=== PATIENT | female | born 1965 | race African-American/Black ===

== ENCOUNTER 2017-04-29 15:34 | Emergency (ER) | payer SELFPAY ==
[~2017-04-29] VITALS: Ht 167.6 cm; Wt 81.0 kg
[2017-04-29] MEDS ORDERED: SODIUM CHLORIDE 0.9% 1,000 ML IV ONE (16:15)
[2017-04-29 16:39] LABS: BASOPHILS % 0.6 % (0.0-2.0); EOSINOPHILS % 0.8 % (0.0-5.0); HEMATOCRIT. 41.5 % (36.0-48.0); HEMOGLOBIN. 14.3 g/dL (12.0-16.0); LYMPHOCYTES % 36.1 % (20.0-50.0); MEAN CORPUSCULAR HEMOGLOBIN 31.2 pg (28.0-32.0); MEAN CORPUSCULAR VOLUME 90.6 fL (81.0-99.0); MEAN PLATELET VOLUME 9.2 fl (7.4-10.4); MONOCYTES % 7.5 % (2.0-8.0); PLATELET 249 x1000/uL (130-400); RED BLOOD CELL COUNT 4.58 mill/uL (4.2-5.4); RED CELL DISTRIBUTION WIDTH 13.8 % (11.6-14.6)
[2017-04-29 16:55] LABS: HCG SCREEN NEGATIVE
[2017-04-29 17:03] LABS: CARBON DIOXIDE 28 mEq/L (21-32); CHLORIDE 108 mEq/L (98-107); ETHANOL BLOOD 34 mg/dL
[2017-04-29 17:06] LABS: *AMPHETAMINES SCREEN URINE NEGATIVE (NEGATIVE); *BARBITURATES SCREEN URINE NEGATIVE (NEGATIVE); *BENZODIAZEPINES SCREEN URINE NEGATIVE (NEGATIVE); *COCAINE SCREEN URINE NEGATIVE (NEGATIVE); CANNABINOID URINE SCREEN NEGATIVE (NEGATIVE); METHADONE URINE SCREEN NEGATIVE (NEGATIVE); OPIATES URINE SCREEN NEGATIVE (NEGATIVE)
[2017-04-29 17:11] LABS: PHENCYCLIDINE URINE SCREEN PRESUMTIVE POSITIVE (NEGATIVE)
[2017-04-29 18:59] VITALS: BP 144/77
== END 2017-04-29 20:23 | disposition home or self-care (01) ==
LOC: ER 16:00
DX: T65.91XA Toxic effect of unspecified substance, accidental (unintentional), initial encounter (principal); F10.129 Alcohol abuse with intoxication, unspecified; G92 Toxic encephalopathy; F17.200 Nicotine dependence, unspecified, uncomplicated; F15.10 Other stimulant abuse, uncomplicated; F19.10 Other psychoactive substance abuse, uncomplicated; Y92.89 Other specified places as the place of occurrence of the external cause
CPT/HCPCS: 36415; 80048; 80305; 80307; 80329; 84703; 85025; 96360; 96361; 99285; G0482; J7030; Z7610

== ENCOUNTER 2017-06-08 23:00 | Emergency (ER) | payer SELFPAY ==
[~2017-06-08] VITALS: Ht 165.1 cm; Wt 68.0 kg
[2017-06-09 02:05] VITALS: BP 164/98
== END 2017-06-09 02:08 | disposition home or self-care (01) ==
LOC: ER 23:08
DX: F16.10 Hallucinogen abuse, uncomplicated (principal); E11.9 Type 2 diabetes mellitus without complications; I10 Essential (primary) hypertension
CPT/HCPCS: 99283

== ENCOUNTER 2017-10-08 13:30 | Emergency (ER) | payer SELFPAY ==
[~2017-10-08] VITALS: Ht 162.6 cm; Wt 80.0 kg
[2017-10-08 17:04] LABS: EOSINOPHILS % 0.2 % (0.0-5.0); HEMATOCRIT. 41.8 % (36.0-48.0); HEMOGLOBIN. 14.3 g/dL (12.0-16.0); LYMPHOCYTES % 21.5 % (20.0-50.0); MEAN CORPUSCULAR HEMOGLOBIN 31.1 pg (28.0-32.0); MEAN PLATELET VOLUME 8.9 fl (7.4-10.4); NEUTROPHILS % 71.3 % (40.0-76.0); PLATELET 275 x1000/uL (130-400); RED CELL DISTRIBUTION WIDTH 13.4 % (11.6-14.6)
[2017-10-08 17:07] LABS: CARBON DIOXIDE 28 mEq/L (21-32); CHLORIDE 106 mEq/L (98-107)
[2017-10-08 17:10] LABS: CLARITY URINE CLEAR (CLEAR); COLOR URINE YELLOW (YELLOW); GLUCOSE URINE NEGATIVE (NEGATIVE); KETONES URINE NEGATIVE (NEGATIVE); LEUKOCYTE ESTERASE URINE NEGATIVE (NEGATIVE); NITRITE URINE NEGATIVE (NEGATIVE); OCCULT BLOOD URINE NEGATIVE (NEGATIVE); PROTEIN URINE NEGATIVE (NEGATIVE); SPECIFIC GRAVITY URINE 1.015 (1.005-1.030)
[2017-10-08 17:15] LABS: ETHANOL BLOOD < 10 mg/dL
[2017-10-08 17:21] LABS: *AMPHETAMINES SCREEN URINE NEGATIVE (NEGATIVE); *BARBITURATES SCREEN URINE NEGATIVE (NEGATIVE); *BENZODIAZEPINES SCREEN URINE NEGATIVE (NEGATIVE); *COCAINE SCREEN URINE NEGATIVE (NEGATIVE); CANNABINOID URINE SCREEN NEGATIVE (NEGATIVE); METHADONE URINE SCREEN NEGATIVE (NEGATIVE); OPIATES URINE SCREEN NEGATIVE (NEGATIVE)
[2017-10-08 17:26] LABS: PHENCYCLIDINE URINE SCREEN PRESUMTIVE POSITIVE (NEGATIVE)
[2017-10-08 18:30] VITALS: BP 133/80
== END 2017-10-08 18:44 | disposition home or self-care (01) ==
LOC: ER 13:51
DX: F16.10 Hallucinogen abuse, uncomplicated (principal); I10 Essential (primary) hypertension; E11.9 Type 2 diabetes mellitus without complications; V49.88XA Car occupant (driver) (passenger) injured in other specified transport accidents, initial encounter; Y93.89 Activity, other specified; Y92.89 Other specified places as the place of occurrence of the external cause; Y99.8 Other external cause status
CPT/HCPCS: 36415; 70450; 80053; 80305; 81003; 85025; 99285; G0482; Z7610

== ENCOUNTER 2022-05-08 12:28 | Emergency (ER) | payer MEDICARE, MEDICAID ==
[~2022-05-08] VITALS: Ht 157.5 cm; Wt 87.0 kg
[2022-05-08 13:32] VITALS: BP 150/65
== END 2022-05-08 13:31 | disposition left against medical advice (07) ==
LOC: ER 12:35
DX: R41.82 Altered mental status, unspecified (principal); R00.0 Tachycardia, unspecified; F41.9 Anxiety disorder, unspecified; H57.03 Miosis; I10 Essential (primary) hypertension; E11.9 Type 2 diabetes mellitus without complications
CPT/HCPCS: 99283